=== PATIENT | male | born 1980 | race Two or more races ===

== ENCOUNTER 2025-01-21 05:34 | Inpatient (IN) | payer OTHER ==
[2025-01-21] MEDS ORDERED: Sodium Chloride 0.9% 10 ML Syringe FLUSH PRN ×2 (05:49→07:14)
[2025-01-21] MEDS: Sodium Chloride 0.9% 1,000 ML IV ONE (06:11)
[2025-01-21 06:12] LABS: BASOPHILS PERCENT AUTO 0.2 % (0.0-1.0); EOSINOPHILS PERCENT AUTO 0.1 % (0.0-6.0); HEMATOCRIT 46.2 % (42.0-52.0); HEMOGLOBIN 15.7 gm/dl (14.0-18.0); IMMATURE GRAN ABSOLUTE AUTO 0.22 K/mm3 (0.00-0.05); IMMATURE GRAN PERCENT AUTO 0.8 % (0.0-0.4); LYMPHOCYTES ABSOLUTE AUTO 1.7 K/mm3 (1.0-4.8); LYMPHOCYTES PERCENT AUTO 6.3 % (24.0-44.0); MEAN CORPUSCULAR HEMOGLOBIN 31.7 pg (28.0-32.0); MEAN CORPUSCULAR VOLUME 93.3 fl (83.0-99.0); MEAN PLATELET VOLUME 10.6 fl (9.4-12.4); MONOCYTES ABSOLUTE AUTO 0.9 K/mm3 (0.0-0.8); MONOCYTES PERCENT AUTO 3.4 % (0.0-8.0); NEUTROPHILS ABSOLUTE AUTO 23.5 K/mm3 (1.8-7.7); NEUTROPHILS PERCENT AUTO 89.2 % (41.0-71.0); PLATELET COUNT,PLT 193 K/mm3 (150-400); RED BLOOD CELL COUNT 4.95 M/mm3 (4.52-5.90); WHITE BLOOD CELL COUNT,WBC 26.38 K/mm3 (3.9-11.3)
[2025-01-21] MEDS: HYDROmorphone 1 MG/ML Syringe IVPUSH ONE (06:13)
[2025-01-21] MEDS ORDERED: Midazolam 1 MG/ML 2 ML SDV ONE (06:22)
[2025-01-21] MEDS ORDERED: fentaNYL 250 MCG/5 ML SDV ONE (06:22)
[2025-01-21] MEDS ORDERED: Ondansetron 4 MG/2 ML SDV ONE (06:28)
[2025-01-21] MEDS ORDERED: Dexamethasone 4 MG/ML 5 ML MDV ONE (06:28)
[2025-01-21] MEDS ORDERED: Rocuronium 50 MG/5 ML Vial ONE ×2 (06:28→07:53)
[2025-01-21 06:31] LABS: A/G RATIO 0.8 (1-2); ALBUMIN 3.6 g/dl (3.4-5.0); ANION GAP 18.1 (5-15); BUN/CREATININE RATIO 13.3 (14-18); CALCIUM 9.6 mg/dL (8.5-10.1); CREATININE 1.2 mg/dL (0.7-1.3); EST CRCL DRUG DOSING (CG) 74.03 mL/min; POTASSIUM,K 4.1 mEq/L (3.5-5.1); PROTEIN TOTAL,TP 8.1 g/dl (6.4-8.2); SLIDE REVIEW ABNORMAL SMEAR
[2025-01-21] MEDS: Sodium Chloride 0.9% 10 ML Syringe FLUSH ONE (06:35)
[2025-01-21] MEDS: Iopamidol 612 MG/ML 30 ML SDV IVPUSH ONE (06:35)
[2025-01-21] MEDS: Iopamidol 612 MG/ML 100 ML Bottle IVPUSH ONE (06:35)
[2025-01-21] MEDS ORDERED: Ondansetron 4 MG/2 ML SDV IVPUSH PRN ×2 (07:14→09:46)
[2025-01-21] MEDS ORDERED: fentaNYL 100 MCG/2 ML SDV IVPUSH PRN ×2 (07:14→09:46)
[2025-01-21] MEDS ORDERED: HYDROmorphone 0.5 MG/0.5 ML Syringe IVPUSH PRN ×3 (07:14→09:49)
[2025-01-21] MEDS ORDERED: HYDROmorphone 0.5 MG/0.5 ML Syringe ONE ×2 (07:22→07:59)
[2025-01-21] MEDS ORDERED: propofoL 1,000 MG/100 ML 100 ML ONE (07:23)
[2025-01-21] MEDS ORDERED: Lactated Ringers 1,000 ML ONE (07:23)
[2025-01-21] MEDS: Albuterol/Ipratropium 3.0-0.5 MG/3 ML Neb Soln NEB ONE (07:28)
[2025-01-21] MEDS: Piperacillin/Tazobactam 4.5 GM in Sodium Chloride 0.9% 100 ML IV ONE (07:29)
[2025-01-21] MEDS: Lactated Ringers 1,000 ML IV SCH (07:30)
[2025-01-21 08:00] LABS: LACTIC ACID 1.4 mmol/L (0.4-2.0)
[2025-01-21] MEDS ORDERED: propofoL 500 MG/50 ML 50 ML ONE (08:10)
[2025-01-21] MEDS ORDERED: Ketorolac 30 MG/ML SDV ONE (08:13)
[2025-01-21] MEDS ORDERED: Sugammadex Sodium 200 MG/2 ML VIAL IV ONE (08:13)
[2025-01-21] MEDS: Lidocaine 1% 5 ML VIAL ONE (08:35)
[2025-01-21] MEDS ORDERED: Acetaminophen Soln 650 MG/20.3 ML UD Cup PO ONE (09:46)
[2025-01-21] MEDS ORDERED: Naloxone 0.4 MG/ML SDV IVPUSH PRN (09:49)
[2025-01-21] MEDS: Nicotine 7 MG/24 Hr Patch TRDERM SCH (11:18)
[2025-01-21] MEDS: Ondansetron 4 MG Tab.DIS PO SCH (11:20)
[2025-01-21] MEDS: Acetaminophen 325 MG Tab PO SCH (11:20)
[2025-01-21] MEDS: Sodium Chloride 0.9% 10 ML Syringe FLUSH SCH (11:59)
[2025-01-21] MEDS ORDERED: Ketorolac 30 MG/ML SDV IVPUSH SCH (14:26)
[2025-01-21] MEDS: Ketorolac 30 MG/ML SDV IM SCH (14:42)
[2025-01-21] MEDS: Piperacillin/Tazobactam 4.5 GM in Sodium Chloride 0.9% 100 ML IV SCH (15:27)
[2025-01-21] MEDS: Ketorolac 30 MG/ML SDV IVPUSH SCH (15:34)
[2025-01-21] MEDS: Heparin Sodium 5,000 Units/ML Vial SUBCUT SCH (15:40)
[2025-01-22 04:57] LABS: BASOPHILS ABSOLUTE AUTO 0.1 K/mm3 (0.0-0.2); BASOPHILS PERCENT AUTO 0.2 % (0.0-1.0); EOSINOPHILS ABSOLUTE AUTO 0.1 K/mm3 (0.0-0.4); EOSINOPHILS PERCENT AUTO 0.2 % (0.0-6.0); HEMATOCRIT 38.8 % (42.0-52.0); IMMATURE GRAN ABSOLUTE AUTO 0.15 K/mm3 (0.00-0.05); IMMATURE GRAN PERCENT AUTO 0.6 % (0.0-0.4); LYMPHOCYTES ABSOLUTE AUTO 1.5 K/mm3 (1.0-4.8); LYMPHOCYTES PERCENT AUTO 5.7 % (24.0-44.0); MEAN CORPUSCULAR HEMOGLOBIN 32.3 pg (28.0-32.0); MEAN CORPUSCULAR HGB CONC 33.5 g/dl (32.0-36.0); MEAN CORPUSCULAR VOLUME 96.3 fl (83.0-99.0); MEAN PLATELET VOLUME 10.8 fl (9.4-12.4); MONOCYTES ABSOLUTE AUTO 0.9 K/mm3 (0.0-0.8); MONOCYTES PERCENT AUTO 3.5 % (0.0-8.0); NEUTROPHILS PERCENT AUTO 89.8 % (41.0-71.0); PLATELET COUNT,PLT 156 K/mm3 (150-400); RED BLOOD CELL COUNT 4.03 M/mm3 (4.52-5.90); WHITE BLOOD CELL COUNT,WBC 26.71 K/mm3 (3.9-11.3)
[2025-01-22 05:15] LABS: ANION GAP 14.3 (5-15); BUN/CREATININE RATIO 16.7 (14-18); CALCIUM 8.6 mg/dL (8.5-10.1); CREATININE 1.2 mg/dL (0.7-1.3); EST CRCL DRUG DOSING (CG) 74.03 mL/min; POTASSIUM,K 4.3 mEq/L (3.5-5.1)
[2025-01-22 05:49] LABS: SLIDE REVIEW ABNORMAL SMEAR
[2025-01-22] MEDS: Nicotine 21 MG/24 Hr Patch TRDERM SCH (14:13)
[2025-01-23 06:28] LABS: BASOPHILS ABSOLUTE AUTO 0.1 K/mm3 (0.0-0.2); BASOPHILS PERCENT AUTO 0.3 % (0.0-1.0); EOSINOPHILS ABSOLUTE AUTO 0.2 K/mm3 (0.0-0.4); EOSINOPHILS PERCENT AUTO 1.4 % (0.0-6.0); HEMOGLOBIN 12.5 gm/dl (14.0-18.0); IMMATURE GRAN ABSOLUTE AUTO 0.12 K/mm3 (0.00-0.05); IMMATURE GRAN PERCENT AUTO 0.8 % (0.0-0.4); LYMPHOCYTES ABSOLUTE AUTO 2.3 K/mm3 (1.0-4.8); LYMPHOCYTES PERCENT AUTO 14.6 % (24.0-44.0); MEAN CORPUSCULAR HEMOGLOBIN 31.3 pg (28.0-32.0); MEAN CORPUSCULAR HGB CONC 32.9 g/dl (32.0-36.0); MEAN CORPUSCULAR VOLUME 95.2 fl (83.0-99.0); MONOCYTES ABSOLUTE AUTO 0.7 K/mm3 (0.0-0.8); MONOCYTES PERCENT AUTO 4.6 % (0.0-8.0); NEUTROPHILS ABSOLUTE AUTO 12.4 K/mm3 (1.8-7.7); NEUTROPHILS PERCENT AUTO 78.3 % (41.0-71.0); PLATELET COUNT,PLT 177 K/mm3 (150-400); RED BLOOD CELL COUNT 3.99 M/mm3 (4.52-5.90); WHITE BLOOD CELL COUNT,WBC 15.83 K/mm3 (3.9-11.3)
[2025-01-23 06:43] LABS: BUN/CREATININE RATIO 20.8 (14-18); CALCIUM 8.7 mg/dL (8.5-10.1); CREATININE 1.2 mg/dL (0.7-1.3); EST CRCL DRUG DOSING (CG) 74.03 mL/min
[2025-01-23] MEDS: Sodium Chloride 0.9% 1,000 ML IV ONE (08:12)
[2025-01-24 05:50] LABS: BASOPHILS ABSOLUTE AUTO 0.1 K/mm3 (0.0-0.2); BASOPHILS PERCENT AUTO 0.4 % (0.0-1.0); EOSINOPHILS ABSOLUTE AUTO 0.5 K/mm3 (0.0-0.4); EOSINOPHILS PERCENT AUTO 2.9 % (0.0-6.0); HEMATOCRIT 39.3 % (42.0-52.0); HEMOGLOBIN 13.3 gm/dl (14.0-18.0); IMMATURE GRAN ABSOLUTE AUTO 0.18 K/mm3 (0.00-0.05); IMMATURE GRAN PERCENT AUTO 1.2 % (0.0-0.4); LYMPHOCYTES ABSOLUTE AUTO 1.9 K/mm3 (1.0-4.8); LYMPHOCYTES PERCENT AUTO 12.3 % (24.0-44.0); MEAN CORPUSCULAR HEMOGLOBIN 31.4 pg (28.0-32.0); MEAN CORPUSCULAR HGB CONC 33.8 g/dl (32.0-36.0); MEAN CORPUSCULAR VOLUME 92.7 fl (83.0-99.0); MEAN PLATELET VOLUME 10.3 fl (9.4-12.4); MONOCYTES ABSOLUTE AUTO 1.1 K/mm3 (0.0-0.8); MONOCYTES PERCENT AUTO 7.1 % (0.0-8.0); NEUTROPHILS ABSOLUTE AUTO 11.9 K/mm3 (1.8-7.7); NEUTROPHILS PERCENT AUTO 76.1 % (41.0-71.0); PLATELET COUNT,PLT 206 K/mm3 (150-400); RED BLOOD CELL COUNT 4.24 M/mm3 (4.52-5.90)
[2025-01-24 06:19] LABS: ANION GAP 14.9 (5-15); BUN/CREATININE RATIO 13.6 (14-18); CALCIUM 9.2 mg/dL (8.5-10.1); CREATININE 1.1 mg/dL (0.7-1.3); EST CRCL DRUG DOSING (CG) 80.76 mL/min; POTASSIUM,K 3.9 mEq/L (3.5-5.1)
[2025-01-24] MEDS: Ketorolac 30 MG/ML SDV IVPUSH ONE (08:37)
== END 2025-01-24 12:30 | disposition home or self-care (01) | DRG 346 ==
LOC: JD.ED 05:34 → JD.SDS 07:03 → JD.OB 09:50 → JD.SDS 14:23
PROVIDERS: ADMIT Surgery; ATTEND Surgery
PROC: 0DJD4ZZ Inspection of Lower Intestinal Tract, Percutaneous Endoscopic Approach (ICD-10-PCS; principal; 2025-01-21 07:30)
PROC: 0W9G40Z Drainage of Peritoneal Cavity with Drainage Device, Percutaneous Endoscopic Approach (ICD-10-PCS; principal; 2025-01-21 07:30)
DX: K35.32 Acute appendicitis with perforation, localized peritonitis, and gangrene, without abscess (principal); E66.9 Obesity, unspecified; Z87.891 Personal history of nicotine dependence; Z79.899 Other long term (current) drug therapy; Z68.34 Body mass index [BMI] 34.0-34.9, adult
CPT/HCPCS: 36415; 74177; 74177-26; 80048; 80053; 83605; 83690; 84484; 85025; 87040; 93005; 93010; 94640; 94761; 96361; 96365; 96375; 99285; 99285-25; A9270-GY; J1100; J1171; J1644; J1885; J2003; J2250; J2405; J2543; J2704; J3010; J3490; J7030; J7120; Q9967